=== PATIENT | male | born 1995 ===

== ENCOUNTER 2017-06-09 19:21 | Emergency (ER) | payer MEDICAID ==
[2017-06-09 19:24] VITALS: BMI 24.3
[2017-06-09 19:53] VITALS: BP 130/72; TEMP 98.5; O2SAT 99
[2017-06-09] MEDS ORDERED: Sodium Chloride 0.9% 1,000 ML IV STA ×2 (19:55→20:19)
--- NOTE | 2017-06-09 20:30 | ED PDOC ---
Arrival/HPI - General Chief Complaint: GI Problem Time Seen by Provider: 06/09/17 19:23 Historian: Patient - History of Present Illness Narrative History of Present Illness (Text): 06/09/17 20:20 A 22 year old male, who denies any significant past medical history, presents to the emergency department for headache, diarrhea, cough, sore throat, runny nose, abdominal pain, and dizziness, which began about 5 days ago. The patient reports that he has been taking Tylenol and pepto bismol and only had temporary relief. The patient denies contact with anyone who was sick, fever, dysuria, shortness of breath, vomiting, or any other complaints at this time. 06/09/17 20:33 Time/Duration: < week (x 5 days ) Symptom Onset: Gradual Symptom Course: Unchanged Activities at Onset: Light Context: Home Past Medical History - Provider Review Nursing Documentation Reviewed: Yes - Infectious Disease Hx of Infectious Diseases: None - Psychiatric Hx Substance Use: No - Anesthesia Hx Anesthesia: No Family/Social History - Physician Review Nursing Documentation Reviewed: Yes Family/Social History: Unknown Family HX Smoking Status: Never Smoked Hx Alcohol Use: Yes Frequency of alcohol use: Socially Hx Substance Use: No Allergies/Home Meds Allergies/Adverse Reactions: Allergies No Known Allergies Allergy (Verified 06/09/17 19:23) Review of Systems - Physician Review All systems were reviewed & negative as marked: Yes - Review of Systems Constitutional: absent: Fevers ENT: Sore Throat, Rhinorrhea Respiratory: Cough Gastrointestinal: Abdominal Pain, Diarrhea, Nausea. absent: Vomiting Genitourinary Male: absent: Dysuria Neurological: Headache, Dizziness Physical Exam Vital Signs Reviewed: Yes Vital Signs Temp Pulse Resp BP Pulse Ox 06/09/17 19:51 98.5 F 80 18 130/72 99 06/09/17 19:26 98.3 F 83 18 147/85 100 Temperature: Afebrile Blood Pressure: Normal Pulse: Regular Respiratory Rate: Normal Appearance: Positive for: Well-Appearing, Non-Toxic, Comfortable Pain Distress: None Mental Status: Positive for: Alert and Oriented X 3 - Systems Exam Head: Present: Atraumatic, Normocephalic Pupils: Present: PERRL Extroacular Muscles: Present: EOMI Conjunctiva: Present: Normal Mouth: Present: Moist Mucous Membranes Nose (Internal): Present: Normal Inspection, No Active Bleeding, Moist, Engorged , Edematous, Boggy, Clear Mucous, Rhinorrhea, Purulent Mucous, Septal Deviation , Septal Hematoma, Epistaxis, Other Neck: Present: Normal Range of Motion Respiratory/Chest: Present: Clear to Auscultation, Good Air Exchange. No: Respiratory Distress, Accessory Muscle Use Cardiovascular: Present: Regular Rate and Rhythm, Normal S1, S2. No: Murmurs Abdomen: Present: Normal Bowel Sounds. No: Tenderness, Distention, Peritoneal Signs Back: Present: Normal Inspection Upper Extremity: Present: Normal Inspection. No: Cyanosis, Edema Lower Extremity: Present: Normal Inspection. No: Edema Neurological: Present: GCS=15, CN II-XII Intact, Speech Normal Skin: Present: Warm, Dry, Normal Color. No: Rashes Psychiatric: Present: Alert, Oriented x 3, Normal Insight, Normal Concentration Medical Decision Making ED Course and Treatment: 06/09/17 20:34 Impression: A 22 year old male with sore throay, runny nose, headache, dizziness , nausea, abdominal pain, and diarrhea. Differential Diagnosis included but are not limited to: Plan: -- Labs -- IV Fluids -- Urinalysis -- Reassess and disposition Progress Notes: - Lab Interpretations Lab Results: 06/09/17 20:30 06/09/17 20:30 Lab Results 06/09/17 21:00: Grp A Beta Strep Ag Negative 06/09/17 20:30: Sodium 143, Potassium 3.8, Chloride 101, Carbon Dioxide 29, Anion Gap 17, BUN 19, Creatinine 1.2, Est GFR ( Amer) > 60, Est GFR (Non- Af Amer) > 60, Random Glucose 77, Calcium 9.6, Total Bilirubin 0.4, Direct Bilirubin 0.3, AST 26, ALT 28, Alkaline Phosphatase 86, Total Protein 8.5 H, Albumin 4.8, Globulin 3.7, Albumin/Globulin Ratio 1.3, Lipase 130 06/09/17 20:30: WBC 9.2, RBC 6.42 H, Hgb 16.0, Hct 45.2, MCV 70.4 L, MCH 24.9 L , MCHC 35.4, RDW 14.4, Plt Count 234, MPV 9.3, Gran % 61.1, Lymph % (Auto) 25.5 , Anderson % (Auto) 8.9 H, Eos % (Auto) 4.1, Baso % (Auto) 0.4, Gran # 5.63, Lymph # 2.4, Anderson # 0.8 H, Eos # 0.4, Baso # 0.04 - Medication Orders Current Medication Orders: Discontinued Medications Sodium Chloride (Sodium Chloride 0.9%) 1,000 mls @ 999 mls/hr IV .Q1H1M STA Stop: 06/09/17 20:55 Last Admin: 06/09/17 20:41 Dose: 999 mls/hr - Scribe Statement The provider has reviewed the documentation as recorded by the Eveibkrupa Malone Provider Scribe Attestation: All medical record entries made by the Scribe were at my direction and personally dictated by me. I have reviewed the chart and agree that the record accurately reflects my personal performance of the history, physical exam, medical decision making, and the department course for this patient. I have also personally directed, reviewed, and agree with the discharge instructions and disposition. Disposition/Present on Arrival - Present on Arrival Any Indicators Present on Arrival: No History of DVT/PE: No History of Uncontrolled Diabetes: No Urinary Catheter: No History of Decub. Ulcer: No History Surgical Site Infection Following: None - Disposition Have Diagnosis and Disposition been Completed?: Yes Diagnosis: Upper respiratory infection, Diarrhea Disposition: HOME/ ROUTINE Disposition Time: 21:50 Patient Plan: Discharge Condition: GOOD Discharge Instructions (ExitCare): Acute Diarrhea (ED), Upper Respiratory Infection (ED) Additional Instructions: Drink plenty of fluids. Diet as instructed for diarrhea. Take the zantac as prescribed. Robitussin DM and pseudoephedrine for URI and cough. Follow up with Dr. Mayers. If diarrhea persists, recommend GI evaluation to be set up by Dr. Mayers. Return to the emergency department if any new concerning symptoms. Prescriptions: guaiFENesin/Dextromethorphan [guaiFENesin-DM] 4 tsp PO Q6H PRN #240 ml PRN Reason: Cough Pseudoephedrine [Sudafed Tab] 2 tab PO Q6H PRN #24 tab PRN Reason: Nasal Congestion Ranitidine HCl [Zantac] 1 tab PO BID #30 tablet Forms: [employer] ([place])
[2017-06-09 20:47] LABS: BASO # 0.04 K/mm3 (0.0-2.0); BASO % 0.4 % (0.0-3.0); EOS # 0.4 (0.0-0.7); EOS % 4.1 % (1.5-5.0); GRAN # 5.63 (1.4-6.5); GRAN % 61.1 % (50.0-68.0); HEMATOCRIT 45.2 % (42.0-52.0); LYMPH # 2.4 (1.2-3.4); LYMPH % 25.5 % (22.0-35.0); MEAN CELL VOLUME 70.4 fl (80.0-105.0); MEAN CORPUSCULAR HEMOGLOBIN 24.9 pg (25.0-35.0); MEAN CORPUSCULAR HGB CONC 35.4 g/dl (31.0-37.0); MEAN PLATELET VOLUME 9.3 fl (7.0-11.0); MONO # 0.8 (0.1-0.6); MONO % 8.9 % (1.0-6.0); RED CELL DISTRIBUTION WIDTH 14.4 % (11.5-14.5); WHITE BLOOD COUNT 9.2 10^3/ul (4.5-11.0)
[2017-06-09 20:59] LABS: ALB/GLOB RATIO 1.3 (1.1-1.8); ALKALINE PHOSPHATASE 86 U/L (38-126); ALT/SGPT 28 U/L (7-56); AST/SGOT 26 U/L (17-59); BILIRUBIN,DIRECT 0.3 mg/dL (0.0-0.4); BILIRUBIN,TOTAL 0.4 mg/dL (0.2-1.3); BLOOD UREA NITROGEN 19 mg/dL (7-21); CALCIUM 9.6 mg/dL (8.4-10.5); CARBON DIOXIDE 29 mmol/L (21-33); CHLORIDE 101 mmol/L (98-107); GFR AFRICAN-AMERICAN > 60; GLUCOSE,RANDOM 77 mg/dL (70-110); LIPASE 130 U/L (23-300); POTASSIUM 3.8 mmol/L (3.6-5.0); SODIUM 143 mmol/L (132-148); TOTAL PROTEIN 8.5 g/dL (5.8-8.3)
[2017-06-09 22:17] VITALS: RESP 17
[2017-06-09 22:19] VITALS: PULSE 88
[2017-06-09 22:28] LABS: PH,URINE 6.5 (4.7-8.0); URINE BILIRUBIN NEGATIVE (NEGATIVE); URINE BLOOD NEGATIVE (NEGATIVE); URINE GLUCOSE (UA) NEGATIVE (NEGATIVE); URINE KETONE NEGATIVE (NEGATIVE); URINE LEUKOCYTE ESTERASE NEGATIVE Leu/uL (NEGATIVE); URINE PROTEIN NEGATIVE mg/dL (<30 mg/dL)
[2017-06-09 22:32] LABS: URINE APPEARANCE CLEAR (CLEAR); URINE COLOR YELLOW (YELLOW)
== END 2017-06-09 22:18 | disposition home or self-care (01) ==
LOC: ED 19:21
DX: J06.9 Acute upper respiratory infection, unspecified (principal); R19.7 Diarrhea, unspecified
CPT/HCPCS: 80053; 81003; 82248; 83690; 85025; 87045; 87070; 87177; 87209; 87430; 99283; J7040